=== PATIENT | female | born 1940 | race Caucasian/White ===

== ENCOUNTER → 2018-07-06 | Outpatient (CLI) | payer MEDICARE ==
[~2018-07-06] MED LIST: AC325T PO; ALBU8.5H2; AML5T PO; ASPI-84 PO; ATEN100T88; ATOR80TA; BENA40TA59; CALC-149 PO; CALC-80; CARV25TA PO; CFR250T PO; CHOL100011 PO; CLOP75TA PO; CYAN10006 PO; DCS100C PO; FLD5TCR; FLUT1DIS26 IH; HYDR12.56; LOSA1TAB19 PO; LVT.05T PO; MTF500T PO; OMEP20CA12 PO; OMG1KC; PRD20T PO; ROSU10TA12 PO; ROSU5TAB PO; SLMFT1E
--- NOTE | 2018-07-06 12:40 | Diagnostic Imaging Report ---
Indication: 78-year-old female presents for bone density screening. Postmenopausal. Comparison: 08/04/2018 Technique: DEXA scan is performed of the bilateral hips and lumbar spine. Findings: Lumbar spine: The lumbar spine from L2-L4 bone density measures 1.543 g/cm2, with a T score of 2.9 and a Z score of 4.5. There has been a 9.2% increase in bone density since the prior exam. Degenerative changes are seen throughout the lumbar spine and this likely increases the measured bone density. Right hip: The right femoral neck bone mineral density measures 0.867 g/cm2, with a T score of -1.2 and a Z score of 0.8. The right total hip bone mineral density measures 0.982 g/cm2, with a T score of -0.2 and a Z score of 1.7. Left hip: The left femoral neck bone mineral density measures 0.845 g/cm2, with a T score of -1.4 and a Z score of 0.6. The total left hip bone mineral density measures 0.990 g/cm2, with a T score of -0.1 and a Z score of 1.7. The mean total hip bone mineral density measures 0.986 g/cm2, with a T score of -0.2 and a Z score 1.7. There has been a 6.9% decrease in mean hip bone density since the prior exam. The FRAX risk assessment tool estimates a 13% probability of a major osteoporotic fracture in 10 years, with a 2.9% probability of hip fracture. Impression: 1. Osteopenia. 2. Decreased bone density since the prior exam in the bilateral hips. Increase in the lumbar spine is likely at least partially due to degenerative change. Dictated by: Dictated on workstation # [id number]
== END ==
LOC: RAD 10:27
PROVIDERS: ATTEND Internal Medicine
DX: Z13.820 Encounter for screening for osteoporosis (principal); M85.89 Other specified disorders of bone density and structure, multiple sites; Z78.0 Asymptomatic menopausal state
CPT/HCPCS: 77080

== ENCOUNTER → 2019-01-01 | Outpatient (CLI) | payer MEDICARE ==
--- NOTE | 2019-01-01 15:09 | Diagnostic Imaging Report ---
PROCEDURE: US Renal Bilateral. TECHNIQUE: Multiple real-time grayscale images were obtained over the kidneys in various projections bilaterally. INDICATION: Chronic kidney disease stage III. FINDINGS: Right kidney measures 11.1 x 6.4 x 5.3 cm and the left kidney measures 10.3 x 4.5 x 5.0 cm. Cortical thickness and echogenicity appears normal. There is some echogenicity and shadowing in the medullary portion of the kidneys, particularly on the right which may be secondary to nephrolithiasis or nephrocalcinosis. No hydronephrosis is seen. Bladder is decompressed. Ureteral jets were visualized. IMPRESSION: There are findings suspicious for either nephrolithiasis or nephrocalcinosis in the medullary portions. No hydronephrosis is seen. Dictated by: Dictated on workstation # [id number]
== END ==
LOC: RAD 13:12
PROVIDERS: ATTEND Internal Medicine
DX: N18.3 Chronic kidney disease, stage 3 (moderate) (principal)
CPT/HCPCS: 76770